=== PATIENT | male | born 1990 | race Caucasian/White ===

== ENCOUNTER 2016-08-02 23:10 | Emergency (ER) | payer SELFPAY ==
--- NOTE | 2016-08-02 23:29 | Emergency Department Record ---
History of Present Illness - General Chief Complaint: Abdominal Pain Stated Complaint: ABD PAIN,FREQUENT URINATION Time Seen by Provider: 08/02/16 23:23 Source: Patient Mode of Arrival: Ambulatory - History of Present Illness Initial Comments: The patient states he has had vague wandering abdominal pain on and off for a few days. Tonight around 5:30 he developed a RLQ non radiating pain which continues and is about a 5/10 severity. He also states he has had 3-4 days of urinary frequency. He denies f,c,cough, flank pain, or urethral discharge. He is not suspicious of STD's. MD Complaint: Abdominal pain Onset/Timin -: Days(s) Location: RLQ Severity: Moderate Quality: Sharp Improves With: Nothing Worsens With: Nothing - Related Data Previous Rx's Medication Instructions Recorded Dicyclomine HCl [Bentyl] 20 mg PO Q8H #14 cap 08/03/16 Ondansetron [Zofran Odt] 4 mg PO Q8H #7 tab.rapdis 08/03/16 Allergies Allergy/AdvReac Type Severity Reaction Status Date / Time No Known Allergies Allergy Unverified 05/20/15 14:59 Travel Screening - Travel/Exposure Within Last 30 Days Have you traveled within the last 30 days?: No Review of Systems Reviewed: No additional complaints except as noted below Constitutional: Reports: As per HPI. Denies: Chills, Fever, Malaise, Night sweats, Weakness, Weight change Eyes: Reports: As per HPI. Denies: Eye discharge, Eye pain, Photophobia, Vision change ENT: Reports: As per HPI. Denies: Congestion, Dental pain, Ear pain, Epistaxis , Hearing loss, Throat pain Respiratory: Reports: As per HPI. Denies: Cough, Dyspnea, Hemoptysis, Stridor, Wheezes Cardiovascular: Reports: As per HPI. Denies: Arrhythmia, Chest pain, Dyspnea on exertion, Edema, Murmurs, Orthopnea, Palpitations, Paroxysmal nocturnal dyspnea, Rheumatic Fever, Syncope Endocrine: Reports: As per HPI. Denies: Fatigue, Heat or cold intolerance, Polydipsia, Polyuria Gastrointestinal: Reports: As per HPI. Denies: Abdominal pain, Constipation, Diarrhea, Hematemesis, Hematochezia, Melena, Nausea, Vomiting Genitourinary: Reports: As per HPI. Denies: Dysuria, Frequency, Hematuria, Incontinence, Retention, Testicular pain, Testicular mass, Urgency Musculoskeletal: Reports: As per HPI. Denies: Arthralgia, Back pain, Gout, Joint swelling, Myalgia, Neck pain Skin: Reports: As per HPI. Denies: Bruising, Change in color, Change in hair/ nails, Lesions, Pruritus, Rash Neurological: Reports: As per HPI. Denies: Abnormal gait, Confusion, Headache, Numbness, Paresthesias, Seizure, Tingling, Tremors, Vertigo, Weakness Psychiatric: Reports: As per HPI. Denies: Anxiety, Auditory hallucinations, Depression, Homicidal thoughts, Suicidal thoughts, Visual hallucinations Hematological/Lymphatic: Reports: As per HPI. Denies: Anemia, Blood Clots, Easy bleeding, Easy bruising, Swollen glands Past Medical History - SOCIAL HISTORY Smoking Status: Current every day smoker Alcohol Use: Rare Drug Use Detail:: Marijuana - RESPIRATORY Hx Respiratory Disorders: No - CARDIOVASCULAR Hx Cardio Disorders: No - NEURO Hx Neuro Disorders: No Family Medical History Any Significant Family History?: No Physical Exam - General General Appearance: Alert, Oriented x3, Cooperative, Moderate distress - Head Head exam: Normal inspection - Eye Eye exam: Normal appearance, PERRL Pupils: Normal accommodation - ENT ENT exam: Normal exam, Mucous membranes moist, Normal external ear exam, Normal orophraynx, TM's normal bilaterally Ear exam: Normal external inspection. negative: External canal tenderness Nasal Exam: Normal inspection. negative: Discharge, Sinus tenderness Mouth exam: Normal external inspection, Tongue normal Teeth exam: Normal inspection. negative: Dental caries Throat exam: Normal inspection. negative: Tonsillar erythema, Tonsillar exudate - Neck Neck exam: Normal inspection, Full ROM. negative: Tenderness - Respiratory Respiratory exam: Normal lung sounds bilaterally. negative: Respiratory distress - Cardiovascular Cardiovascular Exam: Regular rate, Normal rhythm, Normal heart sounds - GI/Abdominal GI/Abdominal exam: Soft, Normal bowel sounds, Tenderness (mild tenderness periumbilical and moderate tenderness RLQ regions, no rebound, no rigidity) - Rectal Rectal exam: Deferred - exam: Deferred - Extremities Extremities exam: Normal inspection, Full ROM, Normal capillary refill. negative: Tenderness - Back Back exam: Reports: Normal inspection, Full ROM. Denies: Muscle spasm, Rash noted, Tenderness - Neurological Neurological exam: Alert, Normal gait, Oriented X3, Reflexes normal - Psychiatric Psychiatric exam: Normal affect, Normal mood - Skin Skin exam: Dry, Intact, Normal color, Warm Course Vital Signs 08/02/16 23:22 Temperature 98.3 F Pulse Rate [ 71 Pulse Ox Probe] Respiratory 18 Rate Blood Pressure 136/99 [Left Arm] Pulse Ox 98 - Reevaluation(s) Reevaluation #1: Pain is improved after dilaudid, patient is drinking his contrast and is aware the workup will take several hours. 08/03/16 01:45 Reevaluation #2: Discussed results with patient. All questions answered. He has no history of GI problems in the past. Will have him take OTC Pepsid and give him a few days of bentyl as well as a PCP referral list. He understands if this problems becomes persistent he is advised to obtain a GI consult. 08/03/16 02:25 Medical Decision Making - Management Options MDM Management: No Additional Work-up Planned - Data Complexity MDM Data: Labs Ordered and/or Reviewed, X-Ray Ordered and/or Reviewed (Contrast CT Abd/Pelvis: Negative per [facility]. Normal appendix.) - Lab Data Result diagrams: 08/02/16 23:50 08/02/16 23:50 Disposition Disposition: Discharge Clinical Impression: Abdominal pain of unknown etiology Disposition: Home, Self-Care Condition: (1) Good Instructions: Abdominal Pain (ED) Additional Instructions: Home with family. Zofran as directed as needed for nausea. Begin Pepcid over the counter 20 mg twice daily. PCP referral list: call for recheck appointment and for routine care. Recheck if worsened in the emergency department. Prescriptions: Dicyclomine HCl [Bentyl] 20 mg PO Q8H #14 cap Ondansetron [Zofran Odt] 4 mg PO Q8H #7 tab.rapdis Forms: Patient Portal Access
[2016-08-02] MEDS ORDERED: HYDROMORPHONE HCL 1 MG/ML CPJ IVP ONE (23:35)
[2016-08-02] MEDS ORDERED: 0.9 % SODIUM CHLORIDE 1,000 ML BAG IV ONE (23:35)
[2016-08-02] MEDS ORDERED: ONDANSETRON HCL IV 4 MG/2 ML VIAL IVP ONE (23:39)
[2016-08-02 23:59] LABS: BASO % 0.2 % (0-6); EOS % 0.9 % (0-6); GRAN % 59.3 % (47-80); HEMATOCRIT 50.6 % (42.0-52.0); HEMOGLOBIN 17.3 gm/dl (14.0-18.0); LYMPH % 31.4 % (16-45); MEAN CELL VOLUME 85.8 fl (81-97); MEAN CORPUSCULAR HEMOGLOBIN 29.3 pg (27-33); MEAN CORPUSCULAR HGB CONC 34.2 g/dl (32-36); MEAN PLATELET VOLUME 9.9 fl (7.4-10.4); MONO % 8.2 % (0-9); PLATELET COUNT 251 K/uL (130-400); RED CELL DISTRIBUTION WIDTH 13.2 % (11.5-14.5); WHITE BLOOD COUNT W/O DIFF 9.1 K/uL (4.2-12.2)
[2016-08-03 00:04] LABS: URINE APPEARANCE CLEAR; URINE BILIRUBIN NEGATIVE (NEGATIVE); URINE BLOOD NEGATIVE (NEGATIVE); URINE COLOR YELLOW; URINE GLUCOSE (UA) NEGATIVE (NEGATIVE); URINE KETONE NEGATIVE (NEGATIVE); URINE LEUKOCYTE ESTERASE NEGATIVE (NEGATIVE); URINE NITRITE NEGATIVE (NEGATIVE); URINE PROTEIN NEGATIVE (NEGATIVE); URINE UROBILINOGEN 0.2 E.U./dL (0.20 - 1.00)
[2016-08-03 00:11] LABS: ALBUMIN 5.2 gm/dL (3.5-5.0); ALKALINE PHOSPHATASE 61 U/L (38-126); ALT/SGPT 28 U/L (21-72); ANION GAP 17.4 (7-16); AST/SGOT 22 U/L (17-59); BILIRUBIN,TOTAL 0.46 mg/dL (0.2-1.3); BLOOD UREA NITROGEN 11 mg/dL (9-20); CARBON DIOXIDE 23.6 mmol/L (22-30); EST GLOMERULAR FILTRATION RATE > 60 ml/min; GLUCOSE,RANDOM 84 mg/dL (70-110); LIPASE 157 U/L (23-300)
[2016-08-03] MEDS ORDERED: POTASSIUM CHLORIDE 20 MEQ TABLET PO ONE (00:23)
[2016-08-03] MEDS ORDERED: ONDANSETRON 4 MG ODT TABLET SL ONE (02:32)
--- NOTE | 2016-08-08 08:24 | CT SCAN REPORT ---
EXAM: ABDOMEN AND PELVIS CT WITH IV CONTRAST HISTORY: ACUTE RIGHT LOWER QUADRANT PAIN FOR THREE DAYS. TECHNIQUE: Contiguous axial images from the lung bases to the symphysis pubis were obtained after the uneventful intravenous administration of 100 ml of Omnipaque 300. Oral contrast was also utilized. Comparison: None. FINDINGS: The lung bases are clear. The liver, spleen, kidneys, adrenals, pancreas, and gallbladder are unremarkable. The visualized loops of small and large bowel demonstrate normal caliber. Normal appendix in the right lower quadrant. Minimal fecal material throughout the colon. No free intraperitoneal fluid or adenopathy. The osseous structures reveal no lytic or blastic lesions. IMPRESSION: NO ACUTE PROCESS OF THE ABDOMEN OR PELVIS. NORMAL APPENDIX. JOB NUMBER: [id number] MTDD
== END 2016-08-03 02:45 | disposition home or self-care (01) ==
LOC: ER 23:10
DX: R10.31 Right lower quadrant pain (principal); R35.0 Frequency of micturition
CPT/HCPCS: 99284 ×2; 96374; 96375; 83690; 85025; 80076; 80048; 81003; 74177; Q9967; J2405; J1170; J7030

== ENCOUNTER 2017-07-24 09:58 | Emergency (ER) | payer SELFPAY ==
--- NOTE | 2017-07-24 10:35 | Emergency Department Record ---
History of Present Illness - General Stated Complaint: CUT FINGER Time Seen by Provider: 07/24/17 10:20 Mode of Arrival: Ambulatory - History of Present Illness Initial Commments: laceration at work at [employer] 30 minutes ago and near skin removal of the left middle fingertip. Onset/Timin -: Minutes(s) Place: Work Context: Accidental Treatments Prior to Arrival: Bandage - [place] Coma Scale Eye Response: (4) Open spontaneously Motor Response: (6) Obeys commands Verbal Response: (5) Oriented Vicente Total: 15 - Related Data Patient Tetanus UTD (within 5 yrs): No Home Medications Medication Instructions Recorded Confirmed Last Taken No Home Med [NO HOME MEDS] 07/24/17 07/24/17 Unknown Allergies Allergy/AdvReac Type Severity Reaction Status Date / Time No Known Allergies Allergy PT UNSURE Verified 07/24/17 10:01 OF REACTION Travel Screening - Travel/Exposure Within Last 30 Days Have you traveled within the last 30 days?: No - Travel/Exposure Within Last Year Have you traveled outside the [place] in the last year?: No - Additonal Travel Details Have you been exposed to anyone with a communicable illness?: No - Travel Symptoms Symptom Screening: None Review of Systems Reviewed: No additional complaints except as noted below Constitutional: Reports: As per HPI. Denies: Chills, Fever, Malaise, Night sweats, Weakness, Weight change Eyes: Reports: As per HPI. Denies: Eye discharge, Eye pain, Photophobia, Vision change ENT: Reports: As per HPI. Denies: Congestion, Dental pain, Ear pain, Epistaxis , Hearing loss, Throat pain Respiratory: Reports: As per HPI. Denies: Cough, Dyspnea, Hemoptysis, Stridor, Wheezes Cardiovascular: Reports: As per HPI. Denies: Arrhythmia, Chest pain, Dyspnea on exertion, Edema, Murmurs, Orthopnea, Palpitations, Paroxysmal nocturnal dyspnea, Rheumatic Fever, Syncope Endocrine: Reports: As per HPI. Denies: Fatigue, Heat or cold intolerance, Polydipsia, Polyuria Gastrointestinal: Reports: As per HPI. Denies: Abdominal pain, Constipation, Diarrhea, Hematemesis, Hematochezia, Melena, Nausea, Vomiting Genitourinary: Reports: As per HPI. Denies: Dysuria, Frequency, Hematuria, Incontinence, Retention, Testicular pain, Testicular mass, Urgency Musculoskeletal: Reports: As per HPI. Denies: Arthralgia, Back pain, Gout, Joint swelling, Myalgia, Neck pain Skin: Reports: As per HPI. Denies: Bruising, Change in color, Change in hair/ nails, Lesions, Pruritus, Rash Neurological: Reports: As per HPI. Denies: Abnormal gait, Confusion, Headache, Numbness, Paresthesias, Seizure, Tingling, Tremors, Vertigo, Weakness Psychiatric: Reports: As per HPI. Denies: Anxiety, Auditory hallucinations, Depression, Homicidal thoughts, Suicidal thoughts, Visual hallucinations Hematological/Lymphatic: Reports: As per HPI. Denies: Anemia, Blood Clots, Easy bleeding, Easy bruising, Swollen glands Past Medical History - SOCIAL HISTORY Smoking Status: Current every day smoker Alcohol Use: None Drug Use: None - RESPIRATORY Hx Respiratory Disorders: No - CARDIOVASCULAR Hx Cardio Disorders: No - NEURO Hx Neuro Disorders: No - GI Hx GI Disorders: No - Hx Genitourinary Disorders: No - ENDOCRINE Hx Endocrine Disorders: No - MUSCULOSKELETAL Hx Musculoskeletal Disorders: No - PSYCH Hx Psych Problems: No - HEMATOLOGY/ONCOLOGY Hx Hematology/Oncology Disorders: No Family Medical History Any Significant Family History?: No Physical Exam - General General Appearance: Alert, Oriented x3, Cooperative, No acute distress - Head Head exam: Normal inspection - Eye Eye exam: Normal appearance, PERRL Pupils: Normal accommodation - ENT ENT exam: Normal exam, Mucous membranes moist, Normal external ear exam, Normal orophraynx, TM's normal bilaterally Ear exam: Normal external inspection. negative: External canal tenderness Nasal Exam: Normal inspection. negative: Discharge, Sinus tenderness Mouth exam: Normal external inspection, Tongue normal Teeth exam: Normal inspection. negative: Dental caries Throat exam: Normal inspection. negative: Tonsillar erythema, Tonsillar exudate - Neck Neck exam: Normal inspection, Full ROM. negative: Tenderness - Respiratory Respiratory exam: Normal lung sounds bilaterally. negative: Respiratory distress - Cardiovascular Cardiovascular Exam: Regular rate, Normal rhythm, Normal heart sounds - GI/Abdominal GI/Abdominal exam: Soft, Normal bowel sounds. negative: Tenderness - Rectal Rectal exam: Deferred - exam: Deferred - Extremities Extremities exam: Normal inspection, Full ROM, Normal capillary refill. negative: Tenderness - Back Back exam: Reports: Normal inspection, Full ROM. Denies: Muscle spasm, Rash noted, Tenderness - Neurological Neurological exam: Alert, Normal gait, Oriented X3, Reflexes normal - Psychiatric Psychiatric exam: Normal affect, Normal mood - Skin Skin exam: Other (laceration of fingertip pad near removal. neurovascular intact.) Course Vital Signs 07/24/17 10:02 Temperature 97.4 F L Pulse Rate 82 Respiratory 18 Rate Blood Pressure 128/86 Pulse Ox 100 - Reevaluation(s) Reevaluation #1: 3 cm complex finger tip near skin amputation 1 % lidocaine digital block reattached skin with 5.0 ethilon times 6 sutures removed part of fingernail distal side of laceration 07/24/17 10:35 07/24/17 11:08 Disposition Clinical Impression: Laceration of finger, left Qualifiers: Encounter type: initial encounter Finger: middle finger Damage to nail status: with damage Foreign body presence: without foreign body Qualified Code(s): S61.313A - Laceration without foreign body of left middle finger with damage to nail, initial encounter Disposition: Home, Self-Care Condition: (1) Good Instructions: Laceration (ED) Additional Instructions: remove sutures in 12 days wound recheck in 2 days at the ED and leave our dressing on for 2 days. Time of Disposition: 11:06 Quality - Quality Measures Quality Measures: N/A - Blood Pressure Screening Does Patient Have Any of the Following: No Blood Pressure Classification: Pre-Hypertensive BP Reading Systolic Measurement: 128 Diastolic Measurement: 86 Screening for High Blood Pressure: < Pre-Hypertensive BP, F/U Documented > [ G8950] Pre-Hypertensive Follow-up Interventions: Referral to alternative/primary care provider.
[2017-07-24] MEDS: Diph,Pert(Acell),Tet Vac 0.5 ML SYR IM ONE (11:10)
== END 2017-07-24 11:23 | disposition home or self-care (01) ==
LOC: ER 09:58
DX: S61.313A Laceration without foreign body of left middle finger with damage to nail, initial encounter (principal); W26.0XXA Contact with knife, initial encounter; Y93.G1 Activity, food preparation and clean up; Y92.511 Restaurant or cafe as the place of occurrence of the external cause; Y99.0 Civilian activity done for income or pay; I10 Essential (primary) hypertension; F17.210 Nicotine dependence, cigarettes, uncomplicated
CPT/HCPCS: 12032; 90715; 96372; 99283; 99284

== ENCOUNTER 2017-07-26 08:13 | Emergency (ER) | payer SELFPAY ==
--- NOTE | 2017-07-26 08:29 | Emergency Department Record ---
History of Present Illness - General Chief Complaint: Wound, check Stated Complaint: FINGER REDRESSED Time Seen by Provider: 07/26/17 08:14 Source: Patient Mode of arrival: Ambulatory Limitations: No limitations - History of Present Illness Initial Comments: The patient is here for wound recheck. He sustained a laceration to the finger tip of the L 3rd finger and cut the tip off. It was sutured and now he is here for a wound recheck. The patient states there is pain to the finger but no swelling. MD Complaint: Wound re-check - Related Data Previous Rx's Medication Instructions Recorded Cephalexin [Keflex] 500 mg PO QID #28 cap 07/26/17 Allergies Allergy/AdvReac Type Severity Reaction Status Date / Time No Known Allergies Allergy PT UNSURE Verified 07/24/17 10:01 OF REACTION Past Medical History - SOCIAL HISTORY Smoking Status: Current every day smoker Alcohol Use: None Drug Use: None - RESPIRATORY Hx Respiratory Disorders: No - CARDIOVASCULAR Hx Cardio Disorders: No - NEURO Hx Neuro Disorders: No - GI Hx GI Disorders: No - Hx Genitourinary Disorders: No - ENDOCRINE Hx Endocrine Disorders: No - MUSCULOSKELETAL Hx Musculoskeletal Disorders: No - PSYCH Hx Psych Problems: No - HEMATOLOGY/ONCOLOGY Hx Hematology/Oncology Disorders: No Family Medical History Any Significant Family History?: No Physical Exam - General General Appearance: Alert, Cooperative, No acute distress - Extremities Extremities exam: negative: Normal inspection (There is tenderness to the finger tip and the skin does appear dusky mildly. There is mild distal finger tenderness but no swelling or erythema. ) Course - Reevaluation(s) Reevaluation #1: I explained to the patient that the tip avulsion may not survive due to the present appearance. He is to take Keflex for a week and F/U with a hand surgeon for further evaluation. 07/26/17 08:28 Disposition Disposition: Discharge Clinical Impression: Encounter for wound re-check Disposition: Home, Self-Care Condition: (2) Stable Instructions: Acute Wound Care (ED) Additional Instructions: Keep clean and gently wash daily and dress with a bandaid. Take the Keflex as directed and please see Dr. Hays in the office in [place] next week and please call for an appointment. Return to the ER for any worsening symptoms. Prescriptions: Cephalexin [Keflex] 500 mg PO QID #28 cap Referrals: ELEANOR HAYS M.D. [MEDICAL DOCTOR] - Forms: Patient Portal Access Time of Disposition: 08:31 Quality - Quality Measures Quality Measures: N/A - Blood Pressure Screening View Details: Yes Does Patient Have Any of the Following: No Blood Pressure Classification: Pre-Hypertensive BP Reading Systolic Measurement: 131 Diastolic Measurement: 81 Screening for High Blood Pressure: < Pre-Hypertensive BP, F/U Documented > [ G8950] Pre-Hypertensive Follow-up Interventions: Referral to alternative/primary care provider.
== END 2017-07-26 08:48 | disposition home or self-care (01) ==
LOC: ER 08:13
DX: Z48.00 Encounter for change or removal of nonsurgical wound dressing (principal); Y93.G1 Activity, food preparation and clean up; Y92.511 Restaurant or cafe as the place of occurrence of the external cause; Y99.0 Civilian activity done for income or pay
CPT/HCPCS: 99282

== ENCOUNTER 2018-07-26 09:00 | Emergency (ER) | payer SELFPAY ==
[2018-07-26] MEDS ORDERED: KETOROLAC 30 MG/ML VIAL IM ONE (09:06)
[2018-07-26] MEDS ORDERED: CLINDAMYCIN 150 MG CAP PO ONE (09:06)
[2018-07-26] MEDS ORDERED: HYDROCODONE/APAP 5/325MG TABLET PO ONE ×2 (09:06→09:29)
[2018-07-26] MEDS ORDERED: LIDOCAINE VISC 2% 15ML SOLUTION MM ONE (09:08)
--- NOTE | 2018-07-26 09:13 | Emergency Department Record ---
History of Present Illness - General Chief complaint: ENT Stated complaint: LT SIDE FACE SWOLLEN Time Seen by Provider: 07/26/18 09:04 Source: Patient, Family Mode of Arrival: Ambulatory Limitations: No limitations - History of Present Illness Initial comments: 27 yo male presents with 3-4 days of left upper dental pain and gradual swelling that is worse today. He has had this in the past. He has several areas of decay throughout the mouth. No swallowing difficulty. MD complaint: Tooth pain -: Days(s) (4) Location: Tooth # (12) Severity: Moderate Quality: Aching Consistency: Constant Improves with: None Worsens with: Movement Context- Dental: History of dental caries, Poor dental care Associated Symptoms: Toothache - Related Data Previous Rx's Medication Instructions Recorded Clindamycin HCl [Cleocin HCl] 300 mg PO QID #28 capsule 07/26/18 Allergies Allergy/AdvReac Type Severity Reaction Status Date / Time No Known Allergies Allergy PT UNSURE Verified 07/24/17 10:01 OF REACTION Review of Systems Constitutional: Denies: Chills, Fever, Malaise, Weakness Eyes: Denies: Eye discharge ENT: Reports: As per HPI, Dental pain. Denies: Congestion, Ear pain, Epistaxis , Hearing loss, Throat pain Respiratory: Denies: Cough, Dyspnea, Hemoptysis Cardiovascular: Denies: Chest pain, Syncope Endocrine: Denies: Fatigue Gastrointestinal: Denies: Abdominal pain, Diarrhea, Nausea, Vomiting Genitourinary: Denies: Dysuria, Frequency, Hematuria Musculoskeletal: Denies: Arthralgia, Back pain, Myalgia Skin: Denies: Bruising, Change in color, Rash Neurological: Denies: Headache Psychiatric: Denies: Anxiety Hematological/Lymphatic: Denies: Easy bleeding, Easy bruising Past Medical History - SOCIAL HISTORY Smoking Status: Current every day smoker Drug Use: None - RESPIRATORY Hx Respiratory Disorders: No - CARDIOVASCULAR Hx Cardio Disorders: No - NEURO Hx Neuro Disorders: No - GI Hx GI Disorders: No - Hx Genitourinary Disorders: No - ENDOCRINE Hx Endocrine Disorders: No - MUSCULOSKELETAL Hx Musculoskeletal Disorders: No - PSYCH Hx Psych Problems: No - HEMATOLOGY/ONCOLOGY Hx Hematology/Oncology Disorders: No Physical Exam - General General Appearance: Alert, Oriented x3, Cooperative, No acute distress Limitations: No limitations - Head Head exam: Atraumatic, Normal inspection Image of Face/Head: 1 - swelling, no erythema, tender - Eye Eye exam: Normal appearance, PERRL, EOMI. negative: Conjunctival injection, Periorbital swelling, Scleral icterus - ENT ENT exam: Mucous membranes moist, Normal external ear exam. negative: Mucous membranes dry Ear exam: Normal external inspection Nasal Exam: Normal inspection Mouth exam: Normal external inspection. negative: Drooling, Muffled voice Teeth exam: Dental caries, Dental tenderness # (12), Gingival enlargement (left upper, small area of possible fluctuance). negative: Normal inspection Throat exam: Normal inspection Image of Mouth/Teeth: 1 - swelling, fluctuance - Neck Neck exam: Normal inspection, Full ROM. negative: Tenderness - Respiratory Respiratory exam: Normal lung sounds bilaterally. negative: Respiratory distress - Rectal Rectal exam: Deferred - exam: Deferred - Extremities Extremities exam: Normal inspection - Neurological Neurological exam: Alert, CN II-XII intact, Oriented X3 - Psychiatric Psychiatric exam: Normal affect, Normal mood - Skin Skin exam: Dry, Intact, Normal color, Warm Course - Reevaluation(s) Reevaluation #1: Antibiotic and analgesic ordered He has left maxillary swelling with some possible fluctuance near tooth 12. I recommend I and D to see if any pus drains. No throat or neck swelling or tenderness 07/26/18 09:10 07/26/18 09:14 I and D Dental Abscess Topical Lidocaine applied 11 blade stab incision Moderate pus drained with some relief of the swelling/pain Patient tolerated this well We discussed home care, follow up and reasons to return to the ED Rx for Clindamycin provided 07/26/18 09:31 Disposition Disposition: Discharge Clinical Impression: Dental abscess Disposition: Home, Self-Care Condition: (1) Good Instructions: Dental Abscess (ED) Additional Instructions: Warm compress to the face 3 times daily Take the antibiotic as directed Be seen if worse immediately Do a diluted salt water swish and spit every 6 hours Call your dentist on Saturday for close follow up Prescriptions: Clindamycin HCl [Cleocin HCl] 300 mg PO QID #28 capsule Forms: Patient Portal Access Time of Disposition: 09:32 Quality - Quality Measures Quality Measures: N/A - Blood Pressure Screening Does Patient Have Any of the Following: No Blood Pressure Classification: Hypertensive Reading Systolic Measurement: 143 Diastolic Measurement: 98 Screening for High Blood Pressure: < Pre-Hypertensive BP, F/U Documented > [ G8950] Pre-Hypertensive Follow-up Interventions: Referral to alternative/primary care provider.
== END 2018-07-26 09:44 | disposition home or self-care (01) ==
LOC: ER 09:00
DX: K04.7 Periapical abscess without sinus (principal); K02.9 Dental caries, unspecified; F17.210 Nicotine dependence, cigarettes, uncomplicated
CPT/HCPCS: 41800 ×2; 99284 ×2; 96372; J1885